=== PATIENT | male | born 1960 | race Caucasian/White ===

== ENCOUNTER 2019-06-19 08:22 | Emergency (ER) | payer BC ==
--- OUTSIDE RECORDS SUMMARY | 2019-06-19 08:45 | XMS REPORT | Summary of Care ---
:1960 Author Organization [facility] Address [address] [place] [address] Care Team Providers Name Role Phone Jordan Means MD Primary Care Provider Reason for Referral Diagnostic Medical (Routine) Status Reason Specialty Diagnoses / Referred By Contact Referred To Contact Procedures Authorized Cardiology Diagnoses Nonrheumatic aortic valve stenosis Jordan Washburn, Cardiology Procedures Sterilisation Technician Procedure Left and Right Heart Cath Provider-Based [facility] 90 [facility] [address], [address] [place] [address] [address]th Floor, Suite [facility] [place], [place] Email: [phone] [email or web address] Reason for Visit Reason Comments Heart Problem Encounter Details Date Type Department Care Team Description 04/28/2019 Office Visit [facility] Jordan Washburn, Nonrheumatic aortic at [facility] valve stenosis Care [facility] [address], [address] 5[address] Floor, [address] [place] [id number] [phone] Allergies Active Allergy Reactions Severity Noted Date Comments Bee Venom 03/28/2019 Codeine Swelling 08/12/2018 Swelling on face. documented as of this encounter (statuses as of 05/10/2019) Medications Medication Sig Dispensed Refills Start Date End Date Status Budesonide-Formote Inhale 2 0 Suspended rol Fumarate puffs into 160-4.5 MCG/ACT the lungs Two Inhalation Aerosol Times Daily (SYMBICORT) Tiotropium [place] Inhale 2 0 Suspended Monohydrate 2.5 puffs into MCG/ACT Inhalation the lungs Aerosol Solution daily (SPIRIVA RESPIMAT) Atorvastatin Take 10 mg by 0 Suspended Calcium 10 MG Oral mouth every Tablet (LIPITOR) evening Zolpidem Tartrate Take 10 mg by 0 Suspended 10 MG Oral Tablet mouth nightly (AMBIEN) as needed for Sleep traZODone HCl 50 Take 50 mg by 0 Suspended MG Oral Tablet mouth nightly (DESYREL) as needed for Sleep traMADol HCl 50 MG Take 50 mg by 0 Suspended Oral Tablet mouth every 6 (ULTRAM) (six) hours as needed for Pain Daily Vitamin Plus Take 1 0 Suspended Oral Capsule capsule by mouth daily Pantoprazole Take 40 mg by 0 Suspended Sodium 40 MG Oral mouth daily Tablet Delayed Release (PROTONIX) Albuterol Sulfate Inhale 2 0 Suspended HFA 108 (90 Base) puffs into MCG/ACT Inhalation the lungs Aerosol Solution every 6 (six) (PROVENTIL hours as HFA;VENTOLIN HFA) needed for Wheezing Aspirin 81 MG Oral Take 81 mg by 0 Discontinued Tablet mouth daily 9 (Medication Reconcilation) Ibuprofen 200 MG Take 800 mg 0 Suspended Oral Tablet by mouth (ADVIL,MOTRIN) every 6 (six) hours as needed for Pain documented as of this encounter (statuses as of 05/10/2019) Active Problems Problem Noted Date Aortic valve stenosis 05/10/2019 COPD (chronic obstructive pulmonary disease) 04/28/2019 History of transient ischemic attack (TIA) 04/28/2019 Nonrheumatic aortic valve stenosis 03/28/2019 Aortic stenosis 05/11/2018 Overview: Moderate to severe documented as of this encounter (statuses as of 05/10/2019) Social History Tobacco Use Types Packs/Day Years Used Date Former Smoker Cigarettes 1.5 40 Smokeless Tobacco: Never Used Comments: quit 2014 Alcohol Use Drinks/Week oz/Week Comments Not 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 documented as of this encounter Last Filed Vital Signs Vital Sign Reading Time Taken Comments Blood Pressure 133/78 04/28/2019 11:47 AM EST Pulse 78 04/28/2019 11:41 AM EST Temperature - - Respiratory Rate - - Oxygen Saturation 97% 04/28/2019 11:41 AM EST Inhaled Oxygen Concentration - - Weight 67.5 kg (148 lb 12.8 oz) 04/28/2019 11:41 AM EST Height - - Body Mass Index 21.97 03/28/2019 4:34 PM EST documented in this encounter Progress Notes Jordan Washburn MD - 04/28/2019 10:30 AM EST Patient's medications, allergies, past medical, surgical, social and family histories were reviewed and updated as appropriate. I saw and evaluated the patient. Discussed with the LONGWALL SHEARER OPERATOR and agree with the findings as documented in the LONGWALL SHEARER OPERATOR's note. Vitals: 04/28/19 1141 04/28/19 1147 BP: 129/76 133/78 BP Location: Right arm Left arm Patient Position: Sitting Sitting Cuff size: Regular Regular Pulse: 78 SpO2: 97% Weight: 67.5 kg (148 lb 12.8 oz) Mr. Jorje Allen returns for re-evaluation. He has known aortic stenosis. He also has COPD. Hislung disease has apparently been stable but his exercise tolerance and exertional dyspnea has worsened. He will undergo an echocardiogram today but based on his symptoms, will make arrangements for a cardiac cath to both assess the valve and his coronaries. Dolly Barrett NP - 10:30 AM EST Subjective: Patient ID: Jorje Allen is a 59 y.o. male. CATY Recinos is a 59 year old male here for follow up of Non-rheumatic aortic stenosis. He states his SOB has significantly worsened over the last month and is very limiting in his ADLs. He will become significantly SOB just walking from one room to the next. His heart rate will increase to 120s with minimal activity. He has an O2 sat at home and has measured his SpO2 with ambulation. There are times that it will drop to 80% while walking. He has to stop and rest and deep breathe for it to raise over 90%. Also has occasional dizziness and lightheadedness with activity Denies chest pain, palpitations, fever, chills, nausea, vomiting, edema. He stopped taking his ASA 81mg a few weeks ago because he was easily bruising. Jorje has a past medical history of Aortic stenosis, COPD (chronic obstructive pulmonary disease), and TIA (transient ischemic attack) (04/2018). Jorje has a current medication list which includes the following prescription(s) : albuterol, atorvastatin, budesonide-formoterol, daily vitamin plus, ibuprofen , pantoprazole, tiotropium, tramadol, trazodone, zolpidem, and aspirin. Jorje is allergic to bee venom. Review of Systems Constitutional: Negative. HENT: Negative. Eyes: Negative. Respiratory: Positive for shortness of breath. Cardiovascular: Negative for chest pain, palpitations and leg swelling. Gastrointestinal: Negative. Endocrine: Negative. Musculoskeletal: Negative. Allergic/Immunologic: Negative. Neurological: Positive for dizziness and light-headedness. Hematological: Bruises/bleeds easily. Psychiatric/Behavioral: Negative. Objective: Physical Exam Constitutional: Appearance: Normal appearance. He is normal weight. HENT: Head: Normocephalic and atraumatic. Neck: Musculoskeletal: Normal range of motion. Vascular: Carotid bruit present. Cardiovascular: Rate and Rhythm: Normal rate and regular rhythm. Pulses: Normal pulses. Heart sounds: Murmur present. Systolic murmur present. No friction rub. No gallop. Pulmonary: Effort: Pulmonary effort is normal. Breath sounds: Normal breath sounds. Abdominal: General: Abdomen is flat. Bowel sounds are normal. There is no distension. Palpations: Abdomen is soft. Musculoskeletal: Normal range of motion. Right lower leg: No edema. Left lower leg: No edema. Skin: General: Skin is warm and dry. Capillary Refill: Capillary refill takes less than 2 seconds. Neurological: General: No focal deficit present. Mental Status: He is alert and oriented to person, place, and time. Mental status is at baseline. Psychiatric: Mood and Affect: Mood normal. Behavior: Behavior normal. Judgment: Judgment normal. EKG: SINUS RHYTHM RIGHT BUNDLE BRANCH BLOCK ABNORMAL ECG Assessment: 1. Non-rheumatic Aortic Stenosis Plan: Plan per Dr. Washburn. documented in this encounter Plan of Treatment Name Type Priority Associated Diagnoses Order Schedule Sterilisation Technician Procedure Cardiac Cath Routine Nonrheumatic aortic Ordered: 2018 Left and Right Heart valve stenosis Cath Health Maintenance Due Date Last Done Comments Hepatitis C Screening (B. 1960 [id number]) MMR Vaccines (1 of 1 - Standard 1960 series) Varicella Vaccines (1 of 2 - 1960 2-dose childhood series) HIV Screening 1972 Colon Cancer Screening 10 yrs 2009 Zoster Vaccines (1 of 2) 2009 DTaP,Tdap,and Td Vaccines (2 - Td) 10/04/2018 09/06/2018 Influenza Vaccine 02/08/2019 Pneumococcal Vaccine: 65+ Years (1 2024 of 2 - PCV13) HIB Vaccines Aged Out No longer eligible based on patient's age to complete this topic Hepatitis A Vaccines Aged Out No longer eligible based on patient's age to complete this topic Hepatitis B Vaccines Aged Out No longer eligible based on patient's age to complete this topic IPV Vaccines Aged Out No longer eligible based on patient's age to complete this topic Pneumococcal Vaccine: Pediatrics Aged Out No longer eligible based on (0 to 5 Years) and At-Risk patient's age to complete Patients (6 to 64 Years) this topic documented as of this encounter Procedures Procedure Name Priority Date/Time Associated Diagnosis Comments ECHOCARDIOGRAM 2D Routine 04/28/2019 10:56 Nonrheumatic aortic Results for this COMPLETE AM EST valve stenosis procedure are in the results section. documented in this encounter Results Echocardiogram 2D complete ECH10 (04/28/2019 10:56 AM EST) Left Ventricular EF by Teichholz 55 [facility] ECHO Method Specimen Narrative Performed At HEIGHT: 175.3 cm (5 ft 9.0 in) [facility] ECHO WEIGHT: 66.7 kg (147.0 lbs) BP: 144/82 BSA: FINDINGS ------- TYPE OF REPORT:This is a complete two-dimensional transthoracic echocardiogram (2D, M-mode, Doppler and color flow Doppler). LEFT VENTRICLE:The left ventricle size is normal. Left ventricular wall thickness is normal. Overall LV systolic function is normal. Estimated LVEF 55%. There are no regional wall motion abnormalities. Doppler indices do not show any significant evidence of diastolic dysfunction. RIGHT VENTRICLE:The right ventricle is normal in size. The right ventricular systolic function is normal. LEFT ATRIUM:The left atrium size by volume measurement is normal (16-34 ml/m2). RIGHT ATRIUM:The right atrium is normal in size and function. INTERATRIAL SEPTUM:The interatrial septum is normal. AORTIC VALVE:Moderate to severe aortic stenosis is present. Peak/mean gradient across the valve is 45.38mmHg / 28.20mmHg. The aortic valve area by continuity equation is 1.08cm . There is mild aortic regurgitation. MITRAL VALVE:Both mitral leaflets are mildly thickened. Mild mitral regurgitation is present. PULMONIC VALVE:The pulmonic valve is not well visualized. The pulmonic valve function is grossly normal. Trace/mild (physiologic) pulmonic regurgitation present. TRICUSPID VALVE:The tricuspid valve appears structurally normal. The tricuspid valve is functionally normal. PERICARDIUM:There is no pericardial effusion. AORTA:The aortic root is normal. IVC / HEPATIC VEINS:The inferior vena cava is normal in size with preserved inspiratory collapse. CONCLUSIONS 1. This is a complete two-dimensional transthoracic echocardiogram (2D, M-mode, Doppler and color flow Doppler). 2. The left ventricle size is normal. 3. Left ventricular wall thickness is normal. 4. Overall LV systolic function is normal. 5. Estimated LVEF 55%. 6. The right ventricular systolic function is normal. 7. There is moderate to severe aortic stenosis. 8. Peak/mean gradient across the valve is 45.38mmHg / 28.20mmHg. 9. The aortic valve area by continuity equation is 1.08cm . 10. There is mild aortic regurgitation. 11. Mild mitral regurgitation is present. 12. Trace/mild (physiologic) pulmonic regurgitation present. 13. No prior reports available for comparison. Conclusions completed MEASUREMENTS LVOT Diam: 2.17 cm Ao Diam: 2.64 cm LA Diam: 2.98 cm IVSd: 1.01 cm LVIDd: 3.94 cm LVPWd: 1.03 cm LVIDs: 2.79 cm LVIDs Index: 1.54 cm/m ESV(Teich): 29.42 ml EF(Teich): 56.42 % ESV(Cube): 21.83 ml EF(Cube): 64.28 % %FS: 29.05 % SV(Teich): 38.08 ml SI(Teich): 21.04 ml/m SV(Cube): 39.29 ml SI(Cube): 21.71 ml/m IVC: 18.15 mm RWT: 0.52 LALd A4C: 3.78 cm LAAd A4C: 12.48 cm LAEDV A-L A4C: 34.97 ml LAEDV MOD A4C: 31.06 ml LALd A2C: 4.38 cm LAAd A2C: 14.74 cm LAEDV A-L A2C: 42.09 ml LAEDV MOD A2C: 37.40 ml LAEDV(A-L): 41.28 ml LAEDV Index (A-L): 22.81 ml/m LAEDV(MOD BP): 36.63 ml LAEDVInd MOD BP: 20.24 ml/m RALd: 3.68 cm [place] A4C: 9.07 cm RAEDV A-L: 18.99 ml RAEDV INDEX: 10.49 ml/m TAPSE: 2.06 cm MV E Simon: 0.61 m/s MV DecT: 161.10 ms MV Dec Mifflin: 3.79 m/s MV A Simon: 0.72 m/s MV E/A Ratio: 0.85 MV PHT: 46.72 ms MVA By PHT: 4.71 cm LVOT Vmax: 1.03 m/s LVOT Vmean: 0.71 m/s LVOT maxP.21 mmHg LVOT meanP.31 mmHg AV Vmax: 3.37 m/s AV Vmean: 2.53 m/s AV maxP.38 mmHg AV meanP.20 mmHg AV VTI: 79.79 cm SOLDEAD Vmax: 1.12 cm SOLEDAD (VTI): 1.08 cm AVAI (VTI): 0.598 cm /m AVAI Vmax: 0.621 cm /m AR Vmax: 3.65 m/s AR maxP.36 mmHg AR PHT: 522.62 ms AR Dec Time: 1802 ms AR Dec Mifflin: 2.03 m/s AR dp/dt: 50.8 mmHg/s DVI: 0.29 PV Vmax: 0.79 m/s PV maxP.49 mmHg Electronically Signed By: Jordan Washburn MD [facility] Electronically Signed On: 05/01/2019 16:42:35 Procedure Note Interface, Received Via [employer] - 05/01/2019 4:40 PM EST HEIGHT: 175.3 cm (5 ft 9.0 in) WEIGHT: 66.7 kg (147.0 lbs) BP: 144/82 BSA: FINDINGS ------- TYPE OF REPORT:This is a complete two-dimensional transthoracic echocardiogram (2D, M-mode, Doppler and color flow Doppler). LEFT VENTRICLE:The left ventricle size is normal. Left ventricular wall thickness is normal. Overall LV systolic function is normal. Estimated LVEF 55%. There are no regional wall motion abnormalities. Doppler indices do not show any significant evidence of diastolic dysfunction. RIGHT VENTRICLE:The right ventricle is normal in size. The right ventricular systolic function is normal. LEFT ATRIUM:The left atrium size by volume measurement is normal (16-34 ml/m2). RIGHT ATRIUM:The right atrium is normal in size and function. INTERATRIAL SEPTUM:The interatrial septum is normal. AORTIC VALVE:Moderate to severe aortic stenosis is present. Peak/mean gradient across the valve is 45.38mmHg / 28.20mmHg. The aortic valve area by continuity equation is 1.08cm . There is mild aortic regurgitation. MITRAL VALVE:Both mitral leaflets are mildly thickened. Mild mitral regurgitation is present. PULMONIC VALVE:The pulmonic valve is not well visualized. The pulmonic valve function is grossly normal. Trace/mild (physiologic) pulmonic regurgitation present. TRICUSPID VALVE:The tricuspid valve appears structurally normal. The tricuspid valve is functionally normal. PERICARDIUM:There is no pericardial effusion. AORTA:The aortic root is normal. IVC / HEPATIC VEINS:The inferior vena cava is normal in size with preserved inspiratory collapse. CONCLUSIONS 1. This is a complete two-dimensional transthoracic echocardiogram (2D, M-mode, Doppler and color flow Doppler). 2. The left ventricle size is normal. 3. Left ventricular wall thickness is normal. 4. Overall LV systolic function is normal. 5. Estimated LVEF 55%. 6. The right ventricular systolic function is normal. 7. There is moderate to severe aortic stenosis. 8. Peak/mean gradient across the valve is 45.38mmHg / 28.20mmHg. 9. The aortic valve area by continuity equation is 1.08cm . 10. There is mild aortic regurgitation. 11. Mild mitral regurgitation is present. 12. Trace/mild (physiologic) pulmonic regurgitation present. 13. No prior reports available for comparison. Conclusions completed MEASUREMENTS LVOT Diam: 2.17 cm Ao Diam: 2.64 cm LA Diam: 2.98 cm IVSd: 1.01 cm LVIDd: 3.94 cm LVPWd: 1.03 cm LVIDs: 2.79 cm LVIDs Index: 1.54 cm/m ESV(Teich): 29.42 ml EF(Teich): 56.42 % ESV(Cube): 21.83 ml EF(Cube): 64.28 % %FS: 29.05 % SV(Teich): 38.08 ml SI(Teich): 21.04 ml/m SV(Cube): 39.29 ml SI(Cube): 21.71 ml/m IVC: 18.15 mm RWT: 0.52 LALd A4C: 3.78 cm LAAd A4C: 12.48 cm LAEDV A-L A4C: 34.97 ml LAEDV MOD A4C: 31.06 ml LALd A2C: 4.38 cm LAAd A2C: 14.74 cm LAEDV A-L A2C: 42.09 ml LAEDV MOD A2C: 37.40 ml LAEDV(A-L): 41.28 ml LAEDV Index (A-L): 22.81 ml/m LAEDV(MOD BP): 36.63 ml LAEDVInd MOD BP: 20.24 ml/m RALd: 3.68 cm [place] A4C: 9.07 cm RAEDV A-L: 18.99 ml RAEDV INDEX: 10.49 ml/m TAPSE: 2.06 cm MV E Simon: 0.61 m/s MV DecT: 161.10 ms MV Dec Mifflin: 3.79 m/s MV A Simon: 0.72 m/s MV E/A Ratio: 0.85 MV PHT: 46.72 ms MVA By PHT: 4.71 cm LVOT Vmax: 1.03 m/s LVOT Vmean: 0.71 m/s LVOT maxP.21 mmHg LVOT meanP.31 mmHg AV Vmax: 3.37 m/s AV Vmean: 2.53 m/s AV maxP.38 mmHg AV meanP.20 mmHg AV VTI: 79.79 cm SOLEDAD Vmax: 1.12 cm SOLEDAD (VTI): 1.08 cm AVAI (VTI): 0.598 cm /m AVAI Vmax: 0.621 cm /m AR Vmax: 3.65 m/s AR maxP.36 mmHg AR PHT: 522.62 ms AR Dec Time: 1802 ms AR Dec Mifflin: 2.03 m/s AR dp/dt: 50.8 mmHg/s DVI: 0.29 PV Vmax: 0.79 m/s PV maxP.49 mmHg Electronically Signed By: Jordan Washburn MD [facility] Electronically Signed On: 05/01/2019 16:42:35 Performing Organization Address City/State/Zipcode Phone Number [facility] ECHO documented in this encounter Visit Diagnoses Diagnosis Nonrheumatic aortic valve stenosis Aortic valve disorders documented in this encounter
--- OUTSIDE RECORDS SUMMARY | 2019-06-19 08:45 | XMS REPORT | Continuity of Care Document ---
:1960 External Reference #:[id number] Author Name Dre Suarez MD Address [address] [place] [address] Care Team Providers Name Role Phone Jordan Means MD - Family Care Team Information Gardening Instructor [phone] Medicine Problems Description No Information Available Social History Type Date Description Comments Sex Unknown Tobacco Use Start: 08/12/14 End: Former Cigarette Smoker 03/04/18 ETOH Use Denies alcohol use Recreational Drug Use Denies Drug Use Tobacco Use Start: Unknown End: Unknown Patient is a former smoker Smoking Status Reviewed: 06/01/19 Patient is a former smoker Allergies, Adverse Reactions, Alerts Active Allergies Reaction Severity Comments Date Codeine Facial swelling 07/12/2018 Bee Sting Difficulty breathing 07/12/2018 Medications Active Medications SIG Qnty Indications Ordering Date Provider Prednisone 1 tab by mouth 5tabs J44.9 Dre Suarez MD 06/01/2019 20mg Tablets daily for 5 days Flutter use as needed 1units J44.9 Dre Suarez MD 06/01/2019 Device Diagnosis Code: j 44.9 Nebulizer use every six J44.9 Stephen, 02/14/2019 Device hours as needed MD Jay refill supplies for 12 months Symbicort inhale two puffs 30.6gm Darren-Asya, 09/15/2018 by mouth twice a MD aJy 160-4.5mcg/Act day Aerosol Spiriva Respimat take 2 puffs once 12gm Johan Shah MD 09/15/2018 daily. 2.5mcg/Act Aerosol Atorvastatin Calcium 1 by mouth every 90tabs Mega Simms 06/25/2018 day at bedtime Geovanna Rubio, FACC 10mg Tablets Zolpidem Tartrate 1 by mouth every Unknown 10mg night Tablets Trazodone HCL 1-2 tab by mouth Unknown 50mg sleep Tablets Tramadol HCL 1 by mouth every 6 Unknown 50mg hour as needed Tablets pain Multi Vitamin 1 by mouth every Unknown Tablets day Pantoprazole Sodium 1 by mouth every Unknown day 40mg Tablets DR Vanessa CALDERON take 2 puffs every Unknown 108(90Base) 6 hours as needed mcg/Act Aerosol for shortness of breath. Mucinex 2 tab by mouth Unknown 600mg Tablets twice a day ER 12HR congestion take with lots of fluids History Medications Brovana 1 vial nebulized 60vials J44.9 Jay Mitchell, 02/14/2019 - twice a day Unknown 15mcg/2ML Nebulizer Budesonide 1 vial nebulized 60vials Gail44.9 Jay Mitchell, 2018 - bid Unknown 0.5mg/2ML Suspension Immunizations Description No Information Available Vital Signs Date Vital Result Comment 06/01/2019 3:37pm BP Systolic Sitting Left Arm 130 mmHg BP Diastolic Sitting Left Arm 68 mmHg Heart Rate 68 /min Respiratory Rate 18 /min Height 69 inches 5'9" Weight 147.00 lb BMI (Body Mass Index) 21.7 kg/m2 BSA (Body Surface Area) 1.81 m2 [place] body weight in kilograms 73 kg O2 % BldC Oximetry 97 % 03/08/2019 1:15pm BP Systolic Sitting Left Arm 126 mmHg BP Diastolic Sitting Left Arm 63 mmHg Heart Rate 88 /min Respiratory Rate 14 /min Height 69 inches 5'9" Weight 147.00 lb BMI (Body Mass Index) 21.7 kg/m2 BSA (Body Surface Area) 1.81 m2 [place] body weight in kilograms 73 kg O2 % BldC Oximetry 95 % Results Description No Information Available Procedures Date Code Description Status 09/25/2017 [id number] Colonoscopy Completed Medical Devices Description No Information Available Encounters Type Date Location Provider Dx Diagnosis Office Visit 03/08/2019 Pulmonology Tom Mitchell Chronic obstructive 1:00p MD Jay pulmonary disease, unspecified Office Visit 02/14/2019 Pulmonology Stephen, J44.9 Chronic obstructive 3:30p MD Jay pulmonary disease, unspecified Office Visit 12/13/2018 Pulmonology Johan Shah MD J44.9 Chronic obstructive 4:00p pulmonary disease, unspecified F17.211 Nicotine dependence, cigarettes, in remission Assessments Date Code Description Provider 06/01/2019 J44.9 Chronic obstructive pulmonary disease, Dre Suarez MD unspecified 03/08/2019 J44.9 Chronic obstructive pulmonary disease, Jay Mitchell MD unspecified 02/14/2019 J44.9 Chronic obstructive pulmonary disease, Jay Mitchell MD unspecified 12/13/2018 J44.9 Chronic obstructive pulmonary disease, Johan Shah MD unspecified 12/13/2018 F17.211 Nicotine dependence, cigarettes, in Johan Shah MD remission Plan of Treatment Future Appointment(s):08/31/2019 3:00 pm - Rafaela Ruff MD at [id number] /22/2020 - Dre Suarez MDJ44.9 Chronic obstructive pulmonary disease, unspecifiedNew Medication:Prednisone 20 mg - 1 tab by mouth daily for 5 daysFlutter - use as needed Diagnosis Code: j 44.9 Functional Status Functional Condition Comment Date Status Independent with all ADL's Active Partial upper dentures Active Mental Status Description No Information Available Referrals Description No Information Available
--- OUTSIDE RECORDS SUMMARY | 2019-06-19 08:45 | XMS REPORT | Summary of Care ---
:1960 Author Organization [facility] Address [address] [place] [address] Care Team Providers Name Role Phone Jordan Means MD Primary Care Provider Reason for Visit Auth/Cert Status Reason Specialty Diagnoses / Referred By Referred To Contact Procedures Contact Diagnoses Nonrheumatic aortic valve stenosis [I35.0] Danielle Tam MD [address] [facility] [address] [place] [phone] Email: [email or web address] Encounter Details Date Type Department Care Team Description 05/10/2019 Hospital Encounter HVC PERIOP Misael Morris MD [address] [place] [address] [phone] [address] [facility] Danielle Tam MD [address] [place] [address] [phone] [place] [address] Allergies Active Allergy Reactions Severity Noted Date Comments Bee Venom 03/28/2019 Codeine Swelling 08/12/2018 Swelling on face. documented as of this encounter (statuses as of 05/10/2019) Medications Medication Sig Dispensed Refills Start Date End Date Status Budesonide-Formoterol Inhale 2 puffs 0 Active Fumarate 160-4.5 into the lungs Two MCG/ACT Inhalation Times Daily Aerosol (SYMBICORT) Tiotropium [place] Inhale 2 puffs 0 Active Monohydrate 2.5 into the lungs MCG/ACT Inhalation daily Aerosol Solution (SPIRIVA RESPIMAT) Atorvastatin Calcium Take 10 mg by 0 Active 10 MG Oral Tablet mouth every (LIPITOR) evening Zolpidem Tartrate 10 Take 10 mg by 0 Active MG Oral Tablet mouth nightly as (AMBIEN) needed for Sleep traZODone HCl 50 MG Take 50 mg by 0 Active Oral Tablet (DESYREL) mouth nightly as needed for Sleep traMADol HCl 50 MG Take 50 mg by 0 Active Oral Tablet (ULTRAM) mouth every 6 (six) hours as needed for Pain Daily Vitamin Plus Take 1 capsule by 0 Active Oral Capsule mouth daily Pantoprazole Sodium 40 Take 40 mg by 0 Active MG Oral Tablet Delayed mouth daily Release (PROTONIX) Albuterol Sulfate HFA Inhale 2 puffs 0 Active 108 (90 Base) MCG/ACT into the lungs Inhalation Aerosol every 6 (six) Solution (PROVENTIL hours as needed HFA;VENTOLIN HFA) for Wheezing Ibuprofen 200 MG Oral Take 800 mg by 0 Active Tablet (ADVIL,MOTRIN) mouth every 6 (six) hours as needed for [...] Sign Reading Time Taken Comments Blood Pressure 128/72 05/10/2019 11:00 AM EST Pulse 90 05/10/2019 10:00 AM EST Temperature 36.4 05/10/2019 7:49 AM EST C (97.5 F) Respiratory Rate 18 05/10/2019 11:00 AM EST Oxygen Saturation 100% 05/10/2019 11:00 AM EST Inhaled Oxygen Concentration - - Weight 64.4 kg (142 lb) 05/10/2019 7:49 AM EST Height 175.3 cm (5' 9") 05/10/2019 7:49 AM EST Body Mass Index 20.97 05/10/2019 7:49 AM EST documented in this encounter Discharge Instructions Discharge Instr - Other Jennifer Campo RN - 05/10/2019 11:58 AM ESTIn case of emergency call 911 or go to nearest emergency room. 1. Do not drive for 24 hours. 2. You may resume your previous diet. 3. Do not lift more than 5 pounds for 1 week. 4. No showers until 24 hours after the procedure. Use soap and water over the site, but no lotions or powders. Do not rub site so as not to cause bleeding. 5. If there are any problems, (dizziness,nausea, vomiting, chest pain, shortness of breath, bleeding, swelling or numbness on the extremity), please call the attending animal keeper. If you are unable to reach the attending animal keeper, call the hospital at [phone] and have the automatic grinder operator page the rail switch operator. 7. Follow up appointment as directed. 8. Take all regular medications unless otherwise instructed. 9. Check your incision site for bleeding occasionally this evening. If bleeding is noted, have a friend or family member hold pressure directly over the incision for 10 minutes continually. If bleedinghas stopped, place a band-aid over the site. Lay flat for the next hour and relax the rest of the day. If bleeding persists, please continue to hold pressure and call 9-1- 1. documented in this encounter Progress Notes Herberth Means RN - 05/10/2019 11:14 AM [id number]: Hemoband released, 2 cc 1100: Hemoband released, 2 cc 1110: Small amount of drainage from R wrist puncture site. 3 cc of air injected into Hemoband. Dr. Morris made aware of bleeding. Will reassess in 20 minutes. 1130: Hemoband released, 2 cc 1145: Hemoband released, 2 cc. No signs of bleeding at this time. 1155: Hemoband released, 2 cc. No signs of bleeding. 1205: Hemoband released, 2 cc. No signs of bleeding. 1215: Hemoband removed, site cleaned, pressure dressing applied. IV removed from L AC site. Discharge instructions reviewed with patient and family. Patient discharged to home.Electronically signed by Herberth Means RN at 12:17 PM ESTdocumented in this encounter Plan of Treatment Name Type Priority Associated Diagnoses Date/Time Bin Worker Procedure Cardiac Cath Routine 05/10/2019 9:48 AM Left and Right Heart EST Cath Health Maintenance Due Date Last Done Comments Hepatitis C Screening (B. 1960 [id number]) MMR Vaccines (1 of 1 - Standard [...] Procedure Name Priority Date/Time Associated Diagnosis Comments MENTAL HEALTH COORDINATOR PROCEDURE Routine 05/10/2019 9:48 AM EST CBC STAT 05/10/2019 7:49 AM Results for this EST procedure are in the results section. BASIC METABOLIC STAT 05/10/2019 7:49 AM Results for this PANEL EST procedure are in the results section. CARDIAC CATH 05/10/2019 7:47 AM PROCEDURE LOG EST documented in this encounter Results CBC (05/10/2019 7:49 AM EST) White Blood Cell 5.0 4 - 10 10*3/uL [facility] at Red Blood Cell 4.99 4.6 - 6.1 [facility] 10*6/uL [facility] at Hemoglobin 14.9 13.5 - 18 g/dL [facility] at Hematocrit 44.1 41 - 53 % [facility] at Mean Cell Volume 88.3 80 - 96 fL [facility] at Mean Cell Hemoglobin 29.9 27 - 33 pg [facility] at Mean Cell Hgb Conc 33.9 32.0 - 36.0 g/dL [facility] at Red Cell Dist Width 13.6 11.5 - 14.5 % [facility] at Platelet Count 239 150 - 400 [facility] 10*3/uL [facility] Specimen EDTA Whole Blood Performing Organization Address City/[facility] Hospital[facility] Phone Number [facility] AT [address] [address] [phone] [facility] at [address] [place] [address] Basic Metabolic Panel (05/10/2019 7:49 AM EST) Bicarbonate 28 22 - 29 mmol/L [facility] Chloride 101 98 - 107 mmol/L [facility] Creatinine 1.03 0.70 - 1.20 [facility] mg/dL [facility] Glucose 107 70 - 140 mg/dL [facility] Potassium 4.4 3.4 - 5.1 mmol/L [facility] Sodium 140 136 - 145 mmol/L [facility] Blood Urea Nitrogen 15 8 - 23 mg/dL [facility] Anion Gap 11 8 - 15 mmol/L [facility] Osmolality, Parth 291 275 - 300 [facility] mosm/kg [facility] BUN/Cre Ratio 15 [facility] Calcium 9.4 8.6 - 10.0 mg/dL [facility] GFR Non 77 >60 [facility] [place] 2009 CDK-EPI mL/min/1.73m2 [facility] Pathology GFR 89 >60 [facility] 2009 CKD-EPI mL/min/1.73m2 [facility] Pathology Specimen Plasma Performing Organization Address City/[facility]/Zipcode Phone Number [facility] [address] [place] [address] [facility] [address] [place] [address] Pathology CARDIAC CATH PROCEDURE LOG (05/10/2019 7:47 AM EST) Narrative Performed At documented in this encounter Administered Medications Medication Order MAR Action Action Date Dose Rate Site NaCl infusion 0.9 % at 75 mL/hr, Intravenous, Continuous, Starting 05/10/19 at 0745, For 6 hours, Start Normal Saline IV at 75 mL/hr, Pre-op documented in this encounter
[2019-06-19 08:57] VITALS: BP 133/78
--- NOTE | 2019-06-19 09:25 | UC ---
Respiratory Complaint HPI - HPI Summary HPI Summary: 59 year old male with h/o serere COPD presents with complaint of c/o head congestion, productive cough with dark mucous and shortness of breath above his baseline. Denies associated chest pain, fever nor chills. - History of Current Complaint Chief Complaint: UCRespiratory Stated Complaint: COUGH,CONGESTION Time Seen by Provider: 06/19/19 09:02 Hx Obtained From: Patient Onset/Duration: Gradual Onset Pain Intensity: 0 - Allergies/Home Medications Allergies/Adverse Reactions: Allergies Allergy/AdvReac Type Severity Reaction Status Date / Time No Known Allergies Allergy Verified 06/19/19 08:50 Home Medications: Home Medications Albuterol HFA INHALER* [Ventolin HFA Inhaler*] 1 - 2 puff INH Q4H PRN 06/19/19 [ History Confirmed 06/19/19] Atorvastatin* [Lipitor 10 MG*] 10 mg PO DAILY 06/19/19 [History Confirmed ] Budesonide/Formote 160/4.5(NF) [Symbicort 160/4.5 (NF)] 2 puff INH BID 06/19/19 [History Confirmed 06/19/19] D-Methorphan/PE/Acetaminophen [Daytime Cold-Flu Relief Liquid] 1 dose PO DAILY PRN 06/19/19 [History Confirmed 06/19/19] Tiotropium CAPSULE (NF) [Spiriva CAPSULE (NF)] 1 cap.inh INH DAILY 06/19/19 [ History Confirmed 06/19/19] Tramadol HCl 50 mg PO QID 06/19/19 [History Confirmed 06/19/19] Zolpidem TAB* [Ambien*] 10 mg PO BEDTIME 06/19/19 [History Confirmed 06/19/19] guaiFENesin [Mucinex] 1,200 mg PO 06/19/19 [History] traZODone TAB* [Desyrel TAB*] 50 mg PO BEDTIME 06/19/19 [History Confirmed 06/19] PMH/Surg Hx/FS Hx/Imm Hx Previously Healthy: Yes Cardiovascular History: Other - Aortic stenosis Respiratory History: COPD - Surgical History Surgical History: Yes Surgery Procedure, Year, and Place: cataract - Family History Known Family History: Positive: Non-Contributory - Social History Alcohol Use: None Substance Use Type: None Smoking Status (MU): Former Smoker When Did the Patient Quit Smoking/Using Tobacco: 2013 Review of Systems All Other Systems Reviewed And Are Negative: Yes Constitutional: Positive: Negative Skin: Positive: Negative Eyes: Positive: Negative ENT: Positive: Negative Respiratory: Positive: Shortness Of Breath, Cough Cardiovascular: Negative: Palpitations, Chest Pain Gastrointestinal: Negative: Abdominal Pain, Vomiting, Diarrhea, Nausea Genitourinary: Positive: Negative Motor: Positive: Negative Neurovascular: Positive: Negative Musculoskeletal: Positive: Negative Neurological: Positive: Negative Psychological: Positive: Negative Is Patient Immunocompromised?: No Physical Exam Triage Information Reviewed: Yes Appearance: No Pain Distress Vital Signs: Initial Vital Signs Temp 99 F 06/19/19 08:54 Pulse 103 06/19/19 08:54 Resp 20 06/19/19 08:54 BP 133/78 06/19/19 08:54 Pulse Ox 99 06/19/19 08:54 Vital Signs Reviewed: Yes Eye Exam: Normal ENT: Positive: Normal ENT inspection Neck: Positive: Supple, Nontender, No Lymphadenopathy Respiratory: Positive: Chest non-tender, Decreased breath sounds - bilat, Wheezing - bialt, Other: - E>I. Negative: Crackles, Rhonchi Cardiovascular: Positive: RRR, Murmur:Sys:Grade _?_/ - III/ Abdomen Description: Positive: Nontender, Soft Musculoskeletal Exam: Normal Neurological Exam: Normal Psychological Exam: Normal Skin Exam: Normal Respiratory Course/Dx - Course Course Of Treatment: I offered a nebulizer treatment while here, he declines. He does have a nebulizer at home which he will use as soon as he gets home. - Differential Dx/Diagnosis Provider Diagnosis: COPD exacerbation, Acute bronchitis Discharge ED - Sign-Out/Discharge Documenting (check all that apply): Patient Departure All imaging exams completed and their final reports reviewed: No Studies - Discharge Plan Condition: Stable Disposition: HOME Prescriptions: DOXYcycline CAP(*) [DOXYcycline 100MG CAP(*)] 100 mg PO BID 10 Days #20 cap methylPREDNISolone [Medrol] 4 mg PO DAILY #1 tab.ds.pk Patient Education Materials: Chronic Bronchitis (ED), COPD (Chronic Obstructive Pulmonary Disease) (ED) Referrals: Jordan Means MD [Primary Care Provider] - Additional Instructions: Take the antibiotics and oral steroids as prescribed. Continue your inhalers as prescribed. Follow-up with your primary care physician if your symptoms persist or worsen. - Billing Disposition and Condition Condition: STABLE Disposition: Home
== END 2019-06-19 09:40 | disposition home or self-care (01) ==
LOC: UCCORT 08:22
DX: J44.1 Chronic obstructive pulmonary disease with (acute) exacerbation (principal); J20.9 Acute bronchitis, unspecified; J44.0 Chronic obstructive pulmonary disease with (acute) lower respiratory infection; Z87.891 Personal history of nicotine dependence; Z79.899 Other long term (current) drug therapy; Z79.51 Long term (current) use of inhaled steroids
CPT/HCPCS: 99212; G0463